=== PATIENT | male | born 1970 | race Caucasian/White ===

== ENCOUNTER 2022-01-31 10:51 | Outpatient (CLI) | payer OTHER | END 2022-01-31 10:52 | disposition home or self-care (01) | LOC: BICCT 10:51 | PROVIDERS: ATTEND Nurse Practitioner Family | DX: R31.9 Hematuria, unspecified (principal); Z98.890 Other specified postprocedural states | CPT/HCPCS: 74176 ==

== ENCOUNTER 2022-03-08 08:36 | Outpatient (CLI) | payer OTHER ==
[2022-03-08] MEDS ORDERED: Iopamidol 370 76% 100 ML VIAL ONE (09:07)
== END 2022-03-08 08:37 | disposition home or self-care (01) ==
LOC: NM 08:36 → EDSTATUS 09:00
PROVIDERS: ATTEND Urology
DX: N28.89 Other specified disorders of kidney and ureter (principal); N32.89 Other specified disorders of bladder; I89.8 Other specified noninfective disorders of lymphatic vessels and lymph nodes
CPT/HCPCS: 71260; 74177; 78306; A9503

== ENCOUNTER 2022-04-07 12:30 | Inpatient (IN) | payer OTHER ==
[2022-04-19] MEDS ORDERED: Bacitracin Zinc Ointment 30 gm TUBE ONE (09:26)
[2022-04-19] MEDS ORDERED: fentaNYL PF 100 MCG/2 ML SYRINGE ONE ×2 (09:34→13:43)
[2022-04-19] MEDS ORDERED: Midazolam HCl 2 mg/2 ml Vial ONE (09:34)
[2022-04-19] MEDS ORDERED: Dexamethasone 20 MG/5 ML VIAL ONE (09:39)
[2022-04-19] MEDS ORDERED: Rocuronium Bromide 10 MG/ML (10ML VIAL) ONE (09:39)
[2022-04-19] MEDS ORDERED: Ondansetron PF 4 MG/2 ML Vial ONE ×2 (09:39→14:10)
[2022-04-19] MEDS ORDERED: Lidocaine 1% PF 5 ML VIAL ONE (09:39)
[2022-04-19] MEDS ORDERED: PROPOFOL 200 MG/20 ML VIAL ONE (09:39)
[2022-04-19] MEDS ORDERED: PHENYLEPHRINE-NS 100 MCG/ML 10 ML SYRINGE ONE (09:39)
[2022-04-19 09:52] LABS: SARS-CoV-2 NAA Rapid Test Not Detected (NotDetected)
[2022-04-19] MEDS ORDERED: Sodium Chloride 0.9% 100 ML ONE (10:02)
[2022-04-19] MEDS ORDERED: CEFAZOLIN 2 GM VIAL ONE (10:02)
[2022-04-19] MEDS ORDERED: Lidocaine 1.5% w/Epi 1:200K 30 ML VIAL (Epid Use) ONE (10:10)
[2022-04-19] MEDS ORDERED: Promethazine HCl 25 MG/ML VIAL IM PRN ×2 (10:30→13:57)
[2022-04-19] MEDS ORDERED: traMADol HCl 50 MG TAB PO PRN ×2 (10:30)
[2022-04-19] MEDS ORDERED: Naloxone HCl 0.4 mg/ml Vial IVP PRN (10:30)
[2022-04-19] MEDS ORDERED: FENTANYL 1,000 MCG/20 ML VIAL 500 MCG, Bupivacaine 0.5% 15 ML in Sodium Chloride 0.9% 7... EPIDURAL SCH (10:30)
[2022-04-19] MEDS ORDERED: Bupivacaine 0.25% 10 ML VIAL EPIDURAL PRN (10:30)
[2022-04-19] MEDS ORDERED: Naloxone HCl 0.4 mg/ml Vial IV PRN (10:30)
[2022-04-19] MEDS ORDERED: diphenhydrAMINE 50 MG/ML VIAL IM PRN (10:30)
[2022-04-19] MEDS ORDERED: Zolpidem Tartrate 5 MG TAB PO PRN (10:30)
[2022-04-19] MEDS ORDERED: diphenhydrAMINE 25 MG CAP PO PRN (10:30)
[2022-04-19] MEDS ORDERED: Promethazine HCl 25 MG SUPP PR PRN (10:30)
[2022-04-19] MEDS ORDERED: diphenhydrAMINE 50 MG/ML VIAL IVP PRN (10:30)
[2022-04-19] MEDS ORDERED: Moisturizing Cream (Eucerin) 113 GM JAR TOP PRN (10:30)
[2022-04-19] MEDS ORDERED: Ondansetron PF 4 MG/2 ML Vial IVP PRN (10:30)
[2022-04-19] MEDS ORDERED: Ropivacaine 0.2% HCl/PF 20 ML ONE (10:38)
[2022-04-19] MEDS ORDERED: SUGAMMADEX SODIUM 200 MG/2 ML VIAL ONE (13:34)
[2022-04-19] MEDS ORDERED: HYDROmorphone 0.5 MG/0.5 ML SYRINGE ONE ×2 (13:44→14:02)
[2022-04-19] MEDS ORDERED: HYDROmorphone 2 MG/ML VIAL SLOW IVP PRN (13:57)
[2022-04-19] MEDS ORDERED: Meperidine HCl/PF 25 MG/ML VIAL SLOW IVP PRN ×2 (13:57)
[2022-04-19] MEDS ORDERED: Ondansetron HCl/PF 4 MG/2 ML Vial IVP PRN (13:57)
[2022-04-19] MEDS ORDERED: Bisacodyl 10 MG SUPP PR PRN (13:58)
[2022-04-19] MEDS ORDERED: Oxybutynin 5 MG TAB PO PRN (13:58)
[2022-04-19] MEDS ORDERED: hydrALAZINE 20 MG/ML VIAL SLOW IVP PRN (13:58)
[2022-04-19] MEDS ORDERED: Mag-Al 1200 mg/1200 mg/30 ML UDCUP PO PRN (13:58)
[2022-04-19 14:37] LABS: Hemoglobin 16.1 g/dL (14.0-18.0); Mean Corpuscular HGB CONC 34.3 g/dL (32.0-36.0); Mean Corpuscular Hemoglobin 33.5 pg (27.0-31.0); Mean Corpuscular Volume 97.8 fl (78.0-98.0); Mean Platelet Volume 6.4 fL (7.4-10.4); Platelet Count 161 10x3/uL (130-400); RBC Distribution Width 13.7 % (11.5-14.5); White Blood Cell (WBC) Count 7.6 10x3/uL (4.8-10.8)
[2022-04-19] MEDS ORDERED: Promethazine HCl 25 MG/ML VIAL ONE (14:39)
[2022-04-19] MEDS ORDERED: hydrALAZINE 20 MG/ML VIAL ONE ×2 (14:48→16:04)
[2022-04-19 14:51] LABS: Anion Gap 11 mmol/L (10-20); BUN (Urea Nitrogen) 25 mg/dL (8.9-20.6); Calc. Creatinine Clearance 122 mL/min (70-130); Calcium 7.8 mg/dL (7.8-10.44); Carbon Dioxide 22 mmol/L (22-29); Chloride 109 mmol/L (98-107); Estimated GFR 51; Glucose 159 mg/dL (70-105); Potassium 5.1 mmol/L (3.5-5.1); Sodium 137 mmol/L (136-145)
[2022-04-19] MEDS ORDERED: Metoprolol Tartrate 5 MG/5 ML VIAL ONE (15:24)
[2022-04-19 17:23] VITALS: BMI 45.5
[2022-04-19] MEDS: Sodium Chloride 0.9% 1,000 ML IV SCH ×2 (17:35→22:04)
[2022-04-19] MEDS: CEFAZOLIN 2 GM in Sodium Chloride 0.9% 100 ML IVPB SCH (18:13)
[2022-04-19] MEDS: niCARdipine 25 MG in Sodium Chloride 0.9% 250 ML 250 ML IVPB SCH ×2 (18:15→20:00)
[2022-04-19] MEDS: Docusate 100 MG CAP PO SCH (19:29)
[2022-04-19] MEDS: HYDROcodone/Acetaminophen 5/325 mg Tablet PO PRN (23:43)
[2022-04-20] MEDS: BUPIVACAINE 0.75% EPIDURAL SCH ×2 (01:24→14:52)
[2022-04-20] MEDS: FENTANYL EPIDURAL SCH ×2 (01:24→14:52)
[2022-04-20] MEDS: SODIUM CHLORIDE 0.9% EPIDURAL SCH ×2 (01:24→14:52)
[2022-04-20] MEDS: CEFAZOLIN 2 GM in Sodium Chloride 0.9% 100 ML IVPB SCH ×2 (01:27→10:32)
[2022-04-20 03:29] LABS: #Lymphocytes 0.6 thou/uL (1.20-3.40); #Monocytes 1.3 thou/uL (0.11-0.59); #Neutrophils 11.3 thou/uL (1.40-6.50); %Basophils 0.1 % (0.0-1.0); %Eosinophils 0.1 % (0.0-10.0); %Lymphocytes 4.7 % (21.0-51.0); %Monocytes 9.9 % (0.0-10.0); %Neutrophils 85.1 % (42.0-75.0); Hemoglobin 14.8 g/dL (14.0-18.0); Mean Corpuscular HGB CONC 34.7 g/dL (32.0-36.0); Mean Corpuscular Hemoglobin 33.8 pg (27.0-31.0); Mean Corpuscular Volume 97.5 fl (78.0-98.0); Mean Platelet Volume 6.7 fL (7.4-10.4); Platelet Count 164 10x3/uL (130-400); RBC Distribution Width 13.8 % (11.5-14.5); Red Blood Cell (RBC) Count 4.39 mill/uL (4.70-6.10); White Blood Cell (WBC) Count 13.3 10x3/uL (4.8-10.8)
[2022-04-20 03:47] LABS: Anion Gap 15 mmol/L (10-20); BUN (Urea Nitrogen) 26 mg/dL (8.9-20.6); Calc. Creatinine Clearance 96 mL/min (70-130); Calcium 7.6 mg/dL (7.8-10.44); Carbon Dioxide 21 mmol/L (22-29); Chloride 106 mmol/L (98-107); Estimated GFR 39; Glucose 135 mg/dL (70-105); Potassium 4.6 mmol/L (3.5-5.1); Sodium 137 mmol/L (136-145)
[2022-04-20] MEDS: Metoprolol Tartrate 50 MG TAB PO SCH (10:32)
[2022-04-20] MEDS: Docusate 100 MG CAP PO SCH ×2 (10:32→20:12)
[2022-04-20] MEDS ORDERED: Amlodipine 10 MG TAB PO SCH (10:45)
[2022-04-20] MEDS: HYDROcodone/Acetaminophen 5/325 mg Tablet PO PRN (20:12)
[2022-04-21] MEDS: SODIUM CHLORIDE 0.9% EPIDURAL SCH ×2 (03:06→15:49)
[2022-04-21] MEDS: FENTANYL EPIDURAL SCH ×2 (03:06→15:49)
[2022-04-21] MEDS: BUPIVACAINE 0.75% EPIDURAL SCH ×2 (03:06→15:49)
[2022-04-21 06:00] LABS: #Lymphocytes 0.8 thou/uL (1.20-3.40); #Monocytes 1.1 thou/uL (0.11-0.59); %Basophils 0.2 % (0.0-1.0); %Eosinophils 0.4 % (0.0-10.0); %Lymphocytes 7.8 % (21.0-51.0); %Monocytes 11.1 % (0.0-10.0); %Neutrophils 80.6 % (42.0-75.0); Hemoglobin 14.2 g/dL (14.0-18.0); Mean Corpuscular HGB CONC 33.8 g/dL (32.0-36.0); Mean Corpuscular Hemoglobin 33.7 pg (27.0-31.0); Mean Corpuscular Volume 99.5 fl (78.0-98.0); Mean Platelet Volume 6.8 fL (7.4-10.4); Platelet Count 150 10x3/uL (130-400); Red Blood Cell (RBC) Count 4.23 mill/uL (4.70-6.10); White Blood Cell (WBC) Count 9.9 10x3/uL (4.8-10.8)
[2022-04-21 06:25] LABS: Anion Gap 9 mmol/L (10-20); BUN (Urea Nitrogen) 26 mg/dL (8.9-20.6); Calc. Creatinine Clearance 94 mL/min (70-130); Calcium 7.7 mg/dL (7.8-10.44); Carbon Dioxide 24 mmol/L (22-29); Chloride 104 mmol/L (98-107); Estimated GFR 38; Glucose 102 mg/dL (70-105); Potassium 4.4 mmol/L (3.5-5.1); Sodium 133 mmol/L (136-145)
[2022-04-21] MEDS: Metoprolol Tartrate 50 MG TAB PO SCH (10:51)
[2022-04-21] MEDS: Docusate 100 MG CAP PO SCH ×2 (10:51→20:39)
[2022-04-21] MEDS: Amlodipine 10 MG TAB PO SCH (10:51)
[2022-04-21] MEDS: Heparin 5,000 UNITS/ML VIAL SC SCH ×2 (17:11→20:39)
[2022-04-22] MEDS: BUPIVACAINE 0.75% EPIDURAL SCH ×2 (05:02→18:08)
[2022-04-22] MEDS: FENTANYL EPIDURAL SCH ×2 (05:02→18:08)
[2022-04-22] MEDS: SODIUM CHLORIDE 0.9% EPIDURAL SCH ×2 (05:02→18:08)
[2022-04-22 07:02] LABS: #Eosinphils 0.1 thou/uL (0.0-0.7); #Lymphocytes 0.8 thou/uL (1.20-3.40); #Monocytes 0.9 thou/uL (0.11-0.59); %Basophils 0.2 % (0.0-1.0); %Eosinophils 1.3 % (0.0-10.0); %Lymphocytes 9.7 % (21.0-51.0); %Monocytes 11.4 % (0.0-10.0); %Neutrophils 77.4 % (42.0-75.0); Hemoglobin 13.5 g/dL (14.0-18.0); Mean Corpuscular HGB CONC 34.8 g/dL (32.0-36.0); Mean Corpuscular Hemoglobin 34.2 pg (27.0-31.0); Mean Corpuscular Volume 98.1 fl (78.0-98.0); Platelet Count 169 10x3/uL (130-400); RBC Distribution Width 13.7 % (11.5-14.5); Red Blood Cell (RBC) Count 3.95 mill/uL (4.70-6.10); White Blood Cell (WBC) Count 7.8 10x3/uL (4.8-10.8)
[2022-04-22 07:10] LABS: Anion Gap 12 mmol/L (10-20); BUN (Urea Nitrogen) 28 mg/dL (8.9-20.6); Calc. Creatinine Clearance 99 mL/min (70-130); Calcium 8.2 mg/dL (7.8-10.44); Carbon Dioxide 24 mmol/L (22-29); Chloride 102 mmol/L (98-107); Estimated GFR 41; Glucose 96 mg/dL (70-105); Potassium 3.8 mmol/L (3.5-5.1); Sodium 134 mmol/L (136-145)
[2022-04-22] MEDS: Metoprolol Tartrate 50 MG TAB PO SCH (08:09)
[2022-04-22] MEDS: Amlodipine 10 MG TAB PO SCH (08:09)
[2022-04-22] MEDS: Heparin 5,000 UNITS/ML VIAL SC SCH ×3 (08:09→21:42)
[2022-04-22] MEDS: Docusate 100 MG CAP PO SCH ×2 (08:09→21:42)
[2022-04-23 06:23] LABS: #Eosinphils 0.2 thou/uL (0.0-0.7); #Lymphocytes 0.7 thou/uL (1.20-3.40); #Monocytes 0.9 thou/uL (0.11-0.59); #Neutrophils 5.2 thou/uL (1.40-6.50); %Basophils 0.3 % (0.0-1.0); %Eosinophils 2.2 % (0.0-10.0); %Lymphocytes 10.6 % (21.0-51.0); %Monocytes 12.4 % (0.0-10.0); %Neutrophils 74.4 % (42.0-75.0); Mean Corpuscular HGB CONC 34.4 g/dL (32.0-36.0); Mean Corpuscular Hemoglobin 33.5 pg (27.0-31.0); Mean Corpuscular Volume 97.5 fl (78.0-98.0); Mean Platelet Volume 6.8 fL (7.4-10.4); Platelet Count 197 10x3/uL (130-400); RBC Distribution Width 13.5 % (11.5-14.5); Red Blood Cell (RBC) Count 4.17 mill/uL (4.70-6.10)
[2022-04-23 06:43] LABS: Anion Gap 11 mmol/L (10-20); BUN (Urea Nitrogen) 29 mg/dL (8.9-20.6); Calc. Creatinine Clearance 110 mL/min (70-130); Calcium 8.4 mg/dL (7.8-10.44); Carbon Dioxide 25 mmol/L (22-29); Chloride 102 mmol/L (98-107); Estimated GFR 46; Glucose 110 mg/dL (70-105); Potassium 4.2 mmol/L (3.5-5.1); Sodium 134 mmol/L (136-145)
[2022-04-23] MEDS: Docusate 100 MG CAP PO SCH ×2 (08:13→20:31)
[2022-04-23] MEDS: Amlodipine 10 MG TAB PO SCH (08:14)
[2022-04-23] MEDS: Metoprolol Tartrate 50 MG TAB PO SCH (08:14)
[2022-04-23] MEDS: Heparin 5,000 UNITS/ML VIAL SC SCH ×3 (08:14→20:31)
[2022-04-23] MEDS: FENTANYL EPIDURAL SCH (11:00)
[2022-04-23] MEDS: SODIUM CHLORIDE 0.9% EPIDURAL SCH (11:00)
[2022-04-23] MEDS: BUPIVACAINE 0.75% EPIDURAL SCH (11:00)
[2022-04-23] MEDS: HYDROcodone/Acetaminophen 5/325 mg Tablet PO PRN (16:27)
[2022-04-24] MEDS: HYDROcodone/Acetaminophen 5/325 mg Tablet PO PRN (04:29)
[2022-04-24] MEDS: BUPIVACAINE 0.75% EPIDURAL SCH (04:48)
[2022-04-24] MEDS: FENTANYL EPIDURAL SCH (04:48)
[2022-04-24] MEDS: SODIUM CHLORIDE 0.9% EPIDURAL SCH (04:48)
[2022-04-24 08:09] LABS: #Eosinphils 0.2 thou/uL (0.0-0.7); #Lymphocytes 0.8 thou/uL (1.20-3.40); #Monocytes 0.8 thou/uL (0.11-0.59); #Neutrophils 3.7 thou/uL (1.40-6.50); %Basophils 0.6 % (0.0-1.0); %Eosinophils 3.8 % (0.0-10.0); %Lymphocytes 13.9 % (21.0-51.0); %Monocytes 14.6 % (0.0-10.0); %Neutrophils 67.1 % (42.0-75.0); Hemoglobin 13.6 g/dL (14.0-18.0); Mean Corpuscular HGB CONC 34.3 g/dL (32.0-36.0); Mean Corpuscular Hemoglobin 33.5 pg (27.0-31.0); Mean Corpuscular Volume 97.5 fl (78.0-98.0); Mean Platelet Volume 6.7 fL (7.4-10.4); Platelet Count 245 10x3/uL (130-400); RBC Distribution Width 13.2 % (11.5-14.5); Red Blood Cell (RBC) Count 4.06 mill/uL (4.70-6.10); White Blood Cell (WBC) Count 5.5 10x3/uL (4.8-10.8)
[2022-04-24 08:34] LABS: Anion Gap 13 mmol/L (10-20); BUN (Urea Nitrogen) 28 mg/dL (8.9-20.6); Calc. Creatinine Clearance 118 mL/min (70-130); Calcium 8.7 mg/dL (7.8-10.44); Carbon Dioxide 25 mmol/L (22-29); Chloride 102 mmol/L (98-107); Estimated GFR 50; Glucose 109 mg/dL (70-105); Potassium 3.8 mmol/L (3.5-5.1); Sodium 136 mmol/L (136-145)
[2022-04-24] MEDS ORDERED: HYDROcodone/Acetaminophen 10/325 mg Tablet PO PRN (08:38)
[2022-04-24] MEDS: Amlodipine 10 MG TAB PO SCH (08:57)
[2022-04-24] MEDS: HYDROcodone/Acetaminophen 10/325 mg Tablet PO PRN ×3 (08:57→21:03)
[2022-04-24] MEDS: Metoprolol Tartrate 50 MG TAB PO SCH (08:57)
[2022-04-24] MEDS: Heparin 5,000 UNITS/ML VIAL SC SCH ×3 (08:58→21:03)
[2022-04-24] MEDS: Docusate 100 MG CAP PO SCH ×2 (08:58→21:03)
[2022-04-25] MEDS: HYDROcodone/Acetaminophen 10/325 mg Tablet PO PRN ×4 (03:36→19:56)
[2022-04-25 06:26] LABS: Anion Gap 11 mmol/L (10-20); BUN (Urea Nitrogen) 26 mg/dL (8.9-20.6); Calc. Creatinine Clearance 111 mL/min (70-130); Calcium 8.4 mg/dL (7.8-10.44); Carbon Dioxide 27 mmol/L (22-29); Chloride 102 mmol/L (98-107); Estimated GFR 47; Glucose 108 mg/dL (70-105); Potassium 3.8 mmol/L (3.5-5.1); Sodium 136 mmol/L (136-145)
[2022-04-25 06:30] LABS: Mean Corpuscular HGB CONC 34.5 g/dL (32.0-36.0); Mean Corpuscular Hemoglobin 33.4 pg (27.0-31.0); Mean Corpuscular Volume 96.7 fl (78.0-98.0)
[2022-04-25] MEDS: Docusate 100 MG CAP PO SCH ×2 (08:17→19:55)
[2022-04-25] MEDS: Amlodipine 10 MG TAB PO SCH (08:17)
[2022-04-25] MEDS: Metoprolol Tartrate 50 MG TAB PO SCH (08:18)
[2022-04-25] MEDS: Heparin 5,000 UNITS/ML VIAL SC SCH ×3 (08:18→19:55)
[2022-04-25 12:30] LABS: #Eosinphils 0.2 thou/uL (0.0-0.7); #Lymphocytes 0.7 thou/uL (1.20-3.40); #Monocytes 0.7 thou/uL (0.11-0.59); #Neutrophils 3.6 thou/uL (1.40-6.50); %Basophils 0.8 % (0.0-1.0); %Eosinophils 3.9 % (0.0-10.0); %Lymphocytes 14.1 % (21.0-51.0); %Monocytes 12.3 % (0.0-10.0); %Neutrophils 68.9 % (42.0-75.0); Hemoglobin 13.3 g/dL (14.0-18.0); Mean Platelet Volume 6.5 fL (7.4-10.4); Platelet Count 250 10x3/uL (130-400); Red Blood Cell (RBC) Count 3.98 mill/uL (4.70-6.10); White Blood Cell (WBC) Count 5.3 10x3/uL (4.8-10.8)
[2022-04-25 14:01] LABS: Actual Bicarbonate (HCO3a) 24.3 mEq/L (22-28); Analyzer IN Cardio OR; Base Excess (BEa) -2.1 mEq/L (-2.0 to +3.0); CO2 Tension 47.6 mmHg (35.0-45.0); Carboxyhemoglobin (COHb) 1.4 gm% (0.0-3.0); Hemoglobin (Hb) 15.9 g/dL (14.0-18.0); Potassium - ABG Lab 4.97 mmol/L (3.70-5.30); pH, Arterial 7.33 (7.35-7.45)
[2022-04-25 14:02] LABS: Puncture Site Arterial Line
[2022-04-26] MEDS: HYDROcodone/Acetaminophen 10/325 mg Tablet PO PRN (05:20)
[2022-04-26 06:22] LABS: #Eosinphils 0.2 thou/uL (0.0-0.7); #Monocytes 0.7 thou/uL (0.11-0.59); #Neutrophils 3.2 thou/uL (1.40-6.50); %Basophils 0.8 % (0.0-1.0); %Lymphocytes 19.9 % (21.0-51.0); %Monocytes 12.8 % (0.0-10.0); %Neutrophils 62.5 % (42.0-75.0); Hemoglobin 13.7 g/dL (14.0-18.0); Mean Corpuscular HGB CONC 34.6 g/dL (32.0-36.0); Mean Corpuscular Hemoglobin 33.7 pg (27.0-31.0); Mean Corpuscular Volume 97.6 fl (78.0-98.0); Mean Platelet Volume 6.4 fL (7.4-10.4); Platelet Count 286 10x3/uL (130-400); Red Blood Cell (RBC) Count 4.06 mill/uL (4.70-6.10); White Blood Cell (WBC) Count 5.2 10x3/uL (4.8-10.8)
[2022-04-26 06:48] LABS: Anion Gap 13 mmol/L (10-20); BUN (Urea Nitrogen) 23 mg/dL (8.9-20.6); Calc. Creatinine Clearance 105 mL/min (70-130); Calcium 8.9 mg/dL (7.8-10.44); Carbon Dioxide 29 mmol/L (22-29); Chloride 100 mmol/L (98-107); Estimated GFR 44; Glucose 103 mg/dL (70-105); Potassium 4.2 mmol/L (3.5-5.1); Sodium 138 mmol/L (136-145)
[2022-04-26] MEDS: Docusate 100 MG CAP PO SCH (09:27)
[2022-04-26] MEDS: Heparin 5,000 UNITS/ML VIAL SC SCH (09:27)
[2022-04-26] MEDS: Metoprolol Tartrate 50 MG TAB PO SCH (09:27)
[2022-04-26] MEDS: Amlodipine 10 MG TAB PO SCH (09:27)
[2022-04-26 11:46] VITALS: BP 146/82; TEMP 98.4
== END 2022-04-26 14:40 | disposition home or self-care (01) | DRG 657 ==
LOC: SURG A 04-19 08:35 → CCU 04-19 16:44 → SURG A 04-20 15:50
PROVIDERS: ADMIT Urology; ATTEND Urology
PROC: 0TT00ZZ Resection of Right Kidney, Open Approach (ICD-10-PCS; principal; 2022-04-19)
PROC: 0W9930Z Drainage of Right Pleural Cavity with Drainage Device, Percutaneous Approach (ICD-10-PCS; 2022-04-19)
DX: C64.1 Malignant neoplasm of right kidney, except renal pelvis (principal); J95.811 Postprocedural pneumothorax; Z68.42 Body mass index [BMI] 45.0-49.9, adult; I10 Essential (primary) hypertension; E66.01 Morbid (severe) obesity due to excess calories; F17.220 Nicotine dependence, chewing tobacco, uncomplicated; Z20.822 Contact with and (suspected) exposure to COVID-19; Z79.899 Other long term (current) drug therapy
CPT/HCPCS: 36415; 71045; 80048; 82805; 85025; 85027; 86850; 86900; 86901; 88307; 88341; 88342; A4649; C1713; C1776; C1889; J0360; J0690; J1100; J1170; J1644; J2001; J2250; J2405; J2550; J2704; J2795; J3010; J3490; J7050; U0002

== ENCOUNTER 2022-04-11 07:34 | Outpatient (CLI) | payer OTHER ==
[2022-04-11 08:28] LABS: Hemoglobin 16.6 g/dL (13.5-17.5); Mean Corpuscular HGB CONC 34.7 g/dL (32.0-36.0); Mean Corpuscular Hemoglobin 31.7 pg (27.0-33.0); Mean Corpuscular Volume 91.6 fl (81.2-95.1); Mean Platelet Volume 8.8 fl (7.4-10.4); Platelet Count 222 10x3/uL (150-450); RBC Distribution Width 13.9 % (11.5-14.5); Red Blood Cell (RBC) Count 5.23 10x6/uL (4.32-5.72); White Blood Cell (WBC) Count 6.6 10x3/uL (3.5-10.5)
[2022-04-11 08:31] LABS: Bilirubin Neg (Negative); Blood, Urine Negative (Negative); Clarity Clear (Clear); Glucose, Urine (Dipstick) Normal (Negative); Ketone, Urine Negative (Negative); Leukocyte 25 (Negative); Nitrite Negative (Negative); Protein, Urine (Dipstick) 30 mg/dl (Neg-Trace); Urobilinogen Normal mg/dL (Less than 2)
[2022-04-11 08:38] LABS: RBC/HPF 0-3 HPF (0-3)
[2022-04-11 08:39] LABS: Bacteria/HPF None Seen HPF (None Seen); Squamous Epithelial None Seen HPF (0-3)
[2022-04-11 08:58] LABS: PTT 37.3 sec (22.0-33.0); Prothrombin Time 10.8 sec (9.5-12.1)
[2022-04-11 09:04] LABS: Anion Gap 16 mmol/L (10-20); BUN (Urea Nitrogen) 24 mg/dL (8.9-20.6); Calc. Creatinine Clearance 0 mL/min (70-130); Calcium 8.7 mg/dL (7.8-10.44); Carbon Dioxide 24 mmol/L (22-29); Chloride 107 mmol/L (98-107); Estimated GFR 59; Glucose 98 mg/dL (70-105); Potassium 4.8 mmol/L (3.5-5.1); Sodium 142 mmol/L (136-145)
== END 2022-04-11 07:35 | disposition home or self-care (01) ==
LOC: LABBT 07:34
PROVIDERS: ATTEND Urology
DX: Z01.818 Encounter for other preprocedural examination (principal); N28.89 Other specified disorders of kidney and ureter; N32.89 Other specified disorders of bladder; E66.01 Morbid (severe) obesity due to excess calories; G47.30 Sleep apnea, unspecified; R31.0 Gross hematuria
CPT/HCPCS: 71046; 80048; 81001; 85027; 85610; 85730; 87086